=== PATIENT | male | born 1970 | race Caucasian/White ===

== ENCOUNTER 2016-12-01 23:41 | Observation (INO) ==
[2016-12-02] MEDS ORDERED: 0.9 % Sodium Chloride 500 ML IVC ONE (00:33)
[2016-12-02] MEDS ORDERED: Aspirin 81 MG TAB.CHEW PO ONE (00:33)
--- NOTE | 2016-12-02 00:43 | Emergency Department Note ---
Disposition Clinical Impression: Chest pain, Elevated blood pressure reading with diagnosis of hypertension Disposition: Admitted As Inpatient Condition: Good Referrals: Rosy Cornell MD [Primary Care Provider] - Forms: ED Satisfaction Letter Time of Disposition: 01:41 Chest Pain HPI - General Chief Complaint: ED Chest Pain Stated Complaint: gris, high bp, chest pain shoulder pain Time Seen by Provider: 12/02/16 00:02 Source: patient Mode of arrival: private vehicle Limitations: no limitations Vital Signs Reviewed: Yes Nursing Notes Reviewed: Yes - History of Present Illness HPI Narrative: 46-year-old male presents to the emergency department with complaint of shortness of breath, elevated blood pressure and left-sided chest discomfort. Patient states that this has been present but intermittent for the last 2-3 days. He states that he was recently started on a new blood pressure medication , Cardizem. Patient states that he previously took atenolol but was switched approximately one week ago by his family doctor. Patient does note some mild discomfort with deep inspiration, has been complaining of pain with coughing. He denies that his cough is productive. He denies any recent fever, chills, nausea, vomiting or abdominal pain. Additionally, patient notes that he feels as if he has had intermittent palpitations "sometimes it just feels like I have an extra couple beats or skipped a beat." He denies any dizziness or lightheadedness. He denies any syncopal episodes. Pt complaint: chest pain Onset (ago): day(s) (2-3) Duration: intermittent Onset: during rest Pain Location: left chest Severity: moderate Severity scale (1-10): 5 Quality: sharp Pain Radiation: none Improves with: nothing Worsens with: inspiration (Coughing) Associated symptoms: Reports: dyspnea, palpitations. Denies: nausea, vomiting, diaphoresis, sense of impending doom, syncope, fever, cough Treatments prior to arrival chest pain: none - Related Data Allergies Allergy/AdvReac Type Severity Reaction Status Date / Time Sulfa (Sulfonamide Allergy Hives Verified 12/01/16 23:49 Antibiotics) All systems ED: reviewed and negative except as stated. Constitutional: Denies: fever, chills Cardiovascular: Reports: chest pain, palpitations Respiratory: Reports: cough, dyspnea Gastrointestinal: Denies: abdominal pain, nausea, vomiting Musculoskeletal: Denies: back pain, neck pain, joint swelling Integumentary: Denies: rash, abrasion, lesions Neurological: Denies: headache Chest Pain PMH - Past Medical History Medical history: Reports: no medical history Psychiatric history: Reports: no psych history - Social History Smoking Status: Never smoker Alcohol use: Reports: rarely Drug use: Reports: none Physical Exam - General Limitations: no limitations General appearance: alert, in no apparent distress - Head Head exam: atraumatic, normocephalic, normal inspection - Eye Eye exam: Present: normal appearance, PERRL - Neck Neck exam: Present: normal inspection, full ROM, trachea midline - Chest Chest inspection: Present: normal inspection, symmetric chest wall rise - Respiratory Respiratory exam: Present: normal lung sounds bilaterally. Absent: respiratory distress, wheezes, stridor, accessory muscle use - Cardiovascular Cardiovascular exam: Present: regular rate, normal rhythm, normal heart sounds - Abdominal Exam Abdominal exam: Present: soft, Non-Tender, normal bowel sounds. Absent: distention, guarding, rebound, rigidity - Extremities Exam Extremities exam: Present: normal inspection, full ROM, normal capillary refill. Absent: pedal edema, joint swelling, calf tenderness - Expanded Lower Extremity Exam Gait: observed and normal - Back Exam Back exam: Present: normal inspection, full ROM. Absent: tenderness - Neurological Exam Neurological exam: Present: alert, oriented X3 - Psychiatric Psychiatric exam: Present: normal affect, normal mood - Skin Skin exam: Present: warm, dry, intact, normal color Course Vital Signs Temperature 97.6 F 12/01/16 23:49 Pulse Rate 109 12/01/16 23:49 Respiratory Rate 20 12/01/16 23:49 Blood Pressure 173/93 12/01/16 23:49 O2 Sat by Pulse Oximetry 97 12/01/16 23:49 Temperature 97.6 F 12/01/16 23:49 Pulse Rate 89 12/02/16 03:00 Respiratory Rate 20 12/02/16 03:00 Blood Pressure 147/95 12/02/16 03:00 O2 Sat by Pulse Oximetry 97 12/02/16 03:00 Oxygen Delivery Oxygen Delivery Room Air Chest Pain - Lab Data Lab results reviewed: Yes I reviewed the patient's lab results. Result diagrams: 12/02/16 00:40 12/02/16 00:40 Lab Results 12/02/16 12/02/16 12/02/16 Range/Units 00:40 00:40 00:40 WBC 5.7 (4.3-11.1) K/mcL RBC 4.52 (4.19-5.50) M/mcL Hgb 15.2 (12.9-16.9) g/dL Hct 43.1 (37.5-50.1) % MCV 95.4 (83.0-100.0) fL MCH 33.6 H (28.0-33.3) pg MCHC 35.3 (31.6-35.5) g/dL RDW 11.9 (11.5-14.5) % Plt Count 197 (140-400) K/mcL MPV 11.0 (9.4-12.4) fL Immature Gran % 0.5 (0-4) % Seg Neutrophils % 50.2 % Lymphocytes % 35.3 % Monocytes % 10.7 % Eosinophils % 2.3 % Basophils % 1.0 % Neutrophils # 2.9 (1.6-8.9) K/mcL Lymphocytes # 2.0 (0.6-4.6) K/mcL Monocytes # 0.6 (0.0-1.3) K/mcL Eosinophils # 0.1 (0.0-0.6) K/mcL Basophils # 0.1 (0.0-0.2) K/mcL Immature Plt Fraction 8.1 H (1.1-6.1) % PT 10.6 (9.4-12.1) Seconds INR 1.0 APTT 36.5 H (26.0-36.0) Seconds D-Dimer < 215 (0-500) ng/mLFEU Sodium (136-145) mEq/L Potassium (3.5-4.5) mEq/L Chloride (98-109) mEq/L Carbon Dioxide (19-29) mEq/L BUN (8-26) mg/dL Creatinine (0.72-1.25) mg/dL Est GFR ( Amer) (> 60) Est GFR (Non-Af Amer) (> 60) BUN/Creatinine Ratio (6-26) Glucose (70-99) mg/dL Calculated Osmolality (280-300) Calcium (8.6-10.8) mg/dL Troponin I (0-0.03) ng/mL B-Natriuretic Peptide < 10 (0-100) pg/mL 12/02/16 12/02/16 Range/Units 00:40 00:40 WBC (4.3-11.1) K/mcL RBC (4.19-5.50) M/mcL Hgb (12.9-16.9) g/dL Hct (37.5-50.1) % MCV (83.0-100.0) fL MCH (28.0-33.3) pg MCHC (31.6-35.5) g/dL RDW (11.5-14.5) % Plt Count (140-400) K/mcL MPV (9.4-12.4) fL Immature Gran % (0-4) % Seg Neutrophils % % Lymphocytes % % Monocytes % % Eosinophils % % Basophils % % Neutrophils # (1.6-8.9) K/mcL Lymphocytes # (0.6-4.6) K/mcL Monocytes # (0.0-1.3) K/mcL Eosinophils # (0.0-0.6) K/mcL Basophils # (0.0-0.2) K/mcL Immature Plt Fraction (1.1-6.1) % PT (9.4-12.1) Seconds INR APTT (26.0-36.0) Seconds D-Dimer (0-500) ng/mLFEU Sodium 140 (136-145) mEq/L Potassium 3.4 L (3.5-4.5) mEq/L Chloride 105 (98-109) mEq/L Carbon Dioxide 21 (19-29) mEq/L BUN 12 (8-26) mg/dL Creatinine 1.20 (0.72-1.25) mg/dL Est GFR ( Amer) > 60 (> 60) Est GFR (Non-Af Amer) > 60 (> 60) BUN/Creatinine Ratio 10 (6-26) Glucose 142 H (70-99) mg/dL Calculated Osmolality 292 (280-300) Calcium 9.6 (8.6-10.8) mg/dL Troponin I 0.00 (0-0.03) ng/mL B-Natriuretic Peptide (0-100) pg/mL - Radiology Data Radiology results reviewed: Yes I reviewed the patient's radiology results. - EKG Data EKG attestation: Yes I reviewed and interpreted this EKG. EKG results narrative: Sinus tachycardia with a rate of 112 bpm with occasional supraventricular premature complexes. No ST elevation. EKG shows normal: sinus rhythm Rate: tachycardia Rhythm: PVC's [place]/QRS: normal When compared to previous EKG there are: no significant changes Interpretation: no acute changes Heart Score - Score History: Slightly Suspicious EKG: Normal Age: 45-65 Risk Factors: 1-2 risk factors Troponin: Less than normal limit HEART Score Total: 2 Attestation Statement - Attestation Attestation: I personally interviewed and examined this patient and my medical decision- making was reviewed with the ED NATHALIA, Barrett Chen I agree with the documented findings, disposition and treatment plan as described except to the extent set forth below. She is a 46 yo white male with a history of uncontrolled hypertension, positive family history for cardiac disease is been having exertional left-sided chest pain radiating into his shoulder and arm associated with shortness of breath. Patient initially was having these symptoms with exertion only and now is starting to notice symptoms at rest. Patient came in with significantly elevated blood pressure and states he has been compliant he sees his doctor on a regular basis, he recently had his blood pressure medicines switched from atenolol to Cardizem and still is having poor control. Patient's EKG on arrival showed no acute findings. I agree with physical exam findings as documented. Patient was given aspirin and nitroglycerin with subsequent pain relief. Patient's chest x-ray is unremarkable and labs including troponin are negative. Patient is resting comfortably and pain-free at this time with improvement in his blood pressure following nitroglycerin. Spoke with patient at length about risk factors and my concern for his heart as the cause of his symptoms. Patient is agreeable with admission for definitive cardiac testing. He has had no prior testing in the past. Discussed with Dr. Treviño who accepted the patient for admission and further evaluation.
[2016-12-02 00:48] LABS: Basophils # 0.1 K/mcL (0.0-0.2); Eosinophils # 0.1 K/mcL (0.0-0.6); Eosinophils % 2.3 %; Hematocrit 43.1 % (37.5-50.1); Hemoglobin 15.2 g/dL (12.9-16.9); Immature Granulocytes % 0.5 % (0-4); Immature Platelets 8.1 % (1.1-6.1); Lymphocytes % 35.3 %; Mean Corpuscular HGB Conc 35.3 g/dL (31.6-35.5); Mean Corpuscular Hemoglobin 33.6 pg (28.0-33.3); Mean Corpuscular Volume 95.4 fL (83.0-100.0); Monocytes # 0.6 K/mcL (0.0-1.3); Monocytes % 10.7 %; Neutrophils # 2.9 K/mcL (1.6-8.9); Platelet Count 197 K/mcL (140-400); Red Blood Count 4.52 M/mcL (4.19-5.50); Red Cell Distribution Width 11.9 % (11.5-14.5); Segmented Neutrophils % 50.2 %
[2016-12-02] MEDS: Nitroglycerin 0.4 MG TAB.SUBL SL ONE ×3 (00:49→01:05)
[2016-12-02 00:52] LABS: Prothrombin Time 10.6 Seconds (9.4-12.1)
[2016-12-02 00:55] LABS: Activated Partial Thrombo Time 36.5 Seconds (26.0-36.0)
[2016-12-02 01:01] LABS: BUN/Creatinine Ratio 10 (6-26); Blood Urea Nitrogen 12 mg/dL (8-26); Calcium 9.6 mg/dL (8.6-10.8); Carbon Dioxide 21 mEq/L (19-29); Chloride 105 mEq/L (98-109); Glucose 142 mg/dL (70-99); Osmolality,Calculated 292 (280-300); Potassium 3.4 mEq/L (3.5-4.5); Sodium 140 mEq/L (136-145); eGFR For African Americans > 60 (> 60); eGFR For Non-African Americans > 60 (> 60)
[2016-12-02 01:16] LABS: D-Dimer < 215 ng/mLFEU (0-500)
[2016-12-02] MEDS ORDERED: Ondansetron 4 MG/2 ML VIAL IVP PRN (04:09)
[2016-12-02] MEDS ORDERED: Acetaminophen 325 MG TABLET PO PRN (04:09)
[2016-12-02] MEDS ORDERED: Naloxone 0.4 MG/ML INJ IVP PRN (04:09)
--- NOTE | 2016-12-02 04:13 | Internal Med History&Physical ---
Date of Encounter: 12/02/16 Time of Encounter: 04:00 Assessment and Plan (1) Chest pain Current visit: Yes Status: Acute Patient is chest pain going on for the past 4 days associated with nausea, sweating, palpitations. History of hypertension. Reproducible chest wall tenderness on exam. EKG with T-wave inversions in lead 3 which is unchanged from his prior EKG. Cardiac enzymes have been negative 1. Patient was placed under observation on telemetry. Echocardiogram. Cycle cardiac enzymes. If negative, will obtain pharmacological nuclear stress test given his baseline EKG abnormalities and the fact that the patient is currently on calcium channel blockers. Aspirin. Nitroglycerin when necessary. Qualifiers: Chest pain type: precordial pain Qualified Code(s): R07.2 - Precordial pain (2) HTN (hypertension) Current visit: Yes Status: Chronic Elevated blood pressure. Patient was recently changed from atenolol to Cardizem. Patient will be started on lisinopril. Qualifiers: Hypertension type: essential hypertension Qualified Code(s): I10 - Essential (primary) hypertension (3) Back pain Current visit: Yes Status: Chronic Uses Vicodin at home. Continue as needed. Qualifiers: Back pain location: low back pain Chronicity: chronic Back pain laterality: midline Sciatica presence: without sciatica Qualified Code(s): M54.5 - Low back pain; G89.29 - Other chronic pain (4) AMINAH (obstructive sleep apnea) Current visit: No Status: Suspected High suspicion for obstructive sleep apnea given his history of snoring and witnessed apneas, tiredness despite sleeping up to 15 hours a day. Patient will require outpatient sleep study for diagnosis and grading the severity of sleep apnea (5) Obesity (BMI 30.0-34.9) Current visit: No Status: Chronic Internal Medicine - H&P: HPI Chief complaint: Chest pain Admitted From: Emergency Dept Plans for Post Hospital Care: Home History of present illness: Mr. Hatfield is a 46 year old male with a history of hypertension who presented to the emergency department due to chest pain. Patient states that his pain started about 4 days ago while he was at work when he was doing his regular activities and not exerting himself. At that time, the pain was about 6/10 intensity on the left side of his chest without any radiation and it was dull and throbbing in nature. No aggravating or relieving factors. It did resolve with nitroglycerin that he received in the emergency department. It is associated with palpitations, lightheadedness, nausea and sweating. He denies any cough, wheezing, fever or chills. He denies any abdominal pain, vomiting, diarrhea or constipation. He denies any recent weight changes, swelling in his legs. Denies any recent travel, sick contacts. He does report feeling tired over the past 2 weeks despite sleeping up to 15 hours. He does have a history of snoring and witnessed apneas. However, he has never had a sleep study and does not carry a diagnosis of sleep apnea. Past Med Surg Social Fam HX - Past Medical History Attestation: Yes The following information was validated with the patient. Source: patient Medical history: hypertension, other (Chronic low back pain) Psychiatric history: no psych history - Past Surgical History Surgical History: no surgical history - Social History Smoking Status: Never smoker Smokeless Tobacco Status: No Alcohol use: heavy Drug use: none Occupational status: employed Current living situation: Home, With Family Activity Level: Independent ambulation Recent Out of Country Travel Within the Last 8 Weeks: No Exposure or Possible Exposure to Illness During Travel: No - Family History Father Hx Family Cardiac Disorders: Yes (CHF) Internal Medicine - H&P: Meds Allergies Sulfa (Sulfonamide Antibiotics) Allergy (Verified 12/02/16 04:14) Hives All Systems PM: A 10-system review of systems was performed and is negative for pertinent findings except as documented above in the HPI. Review of systems: 10 systems have been reviewed and are negative except as mentioned in the history of present illness - Constitutional Vitals: Temp Pulse Resp BP Pulse Ox 97.6 F 85 20 149/77 97 12/01/16 23:49 12/02/16 03:30 12/02/16 03:30 12/02/16 03:30 12/02/16 03:30 Exam: Gen.: Sitting in bed. Mild distress. Eyes: Pupils equal, round and reactive to light. Extraocular muscles intact. ENT: Moist mucous membranes. No oropharyngeal erythema or discharge. Chest: Clear to auscultation bilaterally. No adventitious sounds present. Reproducible chest wall tenderness in the midline. CVS: First and second heart sounds present. No murmurs, rubs or gallops. Mild tachycardia present. Abdomen: Soft, nontender, obese. Bowel sounds present. No hepatosplenomegaly. Skin: No decubitus ulcers appreciated. 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 Psychiatric: Alert, awake and oriented to time, place and person. Lymphatic system: No lymphadenopathy appreciated Internal Med - H&P Results - Labs CBC & Chem 7: 12/02/16 00:40 12/02/16 00:40 - EKG Data -: EKG Interpreted by Myself EKG shows normal: sinus rhythm, ST-T waves (T-wave inversions in lead III) Rate: normal - EKG Data Prior EKG available for review: yes When compared to previous EKG: there is no significant change - Diagnostic Studies Chest x-ray Status: image reviewed by me (No acute infiltrates or abnormality detected)
[2016-12-02] MEDS ORDERED: *HR* HYDROcodone/Acet 10/325 mg TABLET PO PRN (05:14)
[2016-12-02] MEDS ORDERED: *HR* Heparin 5,000 UNIT/ML VIAL SQ SCH (06:00)
[2016-12-02] MEDS ORDERED: Regadenoson 0.4 MG/5 ML SYRINGE IVP ONE (06:05)
[2016-12-02] MEDS ORDERED: Diltiazem CD (24hr) 120 MG CAPSULE PO SCH (09:00)
--- NOTE | 2016-12-02 10:28 | Nuclear Medicine Stress Report ---
Regadenoson Nuclear Stress Name: Armani Hatfield Date of Study: 12/02/2016 Date: 1970 Ht: 70.0 in Medical Record#: [id number] Age: 46 Wt: 229.0 lb Gender: Male Order #: [id number] Location: [facility] Room: [facility] Supervising Provider: Phil Mcdonald CNP Reading Physician: Marlon Larsen MD, [facility] Ordering Physician: Dora Cotto CNP Primary Care Physician: Rosy Cornell MD Stress Technologist: Juan Johnson CRT Online Trader: Jazmín Amaya Indications: Chest Pain Impression: No significant ECG changes with regadenoson. Gated LVEF = 65%. Perfusion imaging was negative for ischemia or infarct. Stress Test Summary: Stress Test Type: Pharmacologic Baseline Information: Initial Heart Rate: 72 Blood Pressure: 138/94 Stress Information: Maximum Blood Pressure: 142/90 Maximum Heart Rate: 93 Percent Maximum Heart Rate Achieved: 53 Double Product: [id number] Nuclear Summary: SPECT myocardial perfusion imaging using [id number] Sestamibi given intravenously was performed at rest and following cardiac stress testing. The resting images were obtained following initial dose of 11.7 mCi. Following stress an additional dose of 35.4 mCi was given at peak exercise or 30 seconds post regadenoson infusion. Findings: Stress Note * Resting ECG demonstrated normal sinus rhythm. * No baseline arrhythmias were noted. * No arrhythmias were noted during stress. * No significant ECG changes with regadenoson. Hemodynamic responses * Normal hemodynamic responses to pharmacologic stress. Study Quality * Study quality is good. Gated EF % * Gated LVEF = 65%. Left Ventricle * The left ventricle is not dilated. * Normal Segmental Perfusion in rest. * Normal segmental perfusion in stress. TID * No evidence of transient ischemic dilatation. Updated by Marlon Larsen MD, [facility] on 12/02/2016 10:21:56 AM electronically signed on 12/02/2016 10:22:17 AM with status of Final
[2016-12-02 11:17] VITALS: BP 141/87
--- NOTE | 2016-12-02 12:49 | Discharge Summary ---
Date of Encounter: 12/02/16 Time of Encounter: 12:00 - Discharge Diagnosis (1) Chest pain Priority: Primary Status: Resolved Comments: Patient denied chest pain on day of discharge. Chest x-ray negative. Troponins negative. Echocardiogram unremarkable with ejection fraction of 60%. Stress test negative. ACS ruled out. (2) Elevated blood pressure reading with diagnosis of hypertension Priority: Secondary Status: Chronic Comments: Patient stating he was started on Cardizem last for his hypertension. He denied any palpitations prior to the initiation of this medication he states that this chest pain and palpitations started after starting his Cardizem, will be held at discharge and lisinopril will be initiated. Follow-up closely outpatient. (3) HTN (hypertension) Priority: Secondary Status: Chronic Qualifiers: Hypertension type: essential hypertension Qualified Code(s): I10 - Essential (primary) hypertension (4) Obesity (BMI 30.0-34.9) Priority: Secondary Status: Chronic (5) Back pain Priority: Secondary Status: Chronic Qualifiers: Back pain location: low back pain Chronicity: chronic Back pain laterality: midline Sciatica presence: without sciatica Qualified Code(s): M54.5 - Low back pain; G89.29 - Other chronic pain (6) AMINAH (obstructive sleep apnea) Priority: Primary Status: Suspected Comments: Outpatient sleep study (7) Accelerated hypertension Priority: Primary Status: Resolved - Discharge Medications Prescriptions: Lisinopril [Zestril] 20 mg PO DAILY #30 tablet Home Medications: Adalimumab [Humira] 40 mg SQ Q2W 12/02/16 [History] Allopurinol [Zyloprim 300 MG] 300 mg PO DAILY 12/02/16 [History] Atenolol [Tenormin] 50 mg PO BID 12/02/16 [History] HYDROcodone/Acet 10/325 mg [[place] 10-325 mg] 2 tab PO Q4HR PRN 12/02/16 [History ] Lisinopril [Zestril] 20 mg PO DAILY #30 tablet 12/02/16 [Rx] Montelukast [Singulair] 10 mg PO DAILY 12/02/16 [History] Omeprazole [PriLOSEC] 40 mg PO DAILY 12/02/16 [History] Allergies/Adverse Reactions: Allergies Sulfa (Sulfonamide Antibiotics) Allergy (Verified 12/02/16 04:14) Hives Procedures/tests Complete & Pending: Procedures Performed prior 72 hours Category Date Time Status NM renata perf SPECT multi [NM] Routine Exams 12/02/16 04:10 Taken EV echocardiogram Routine Y 12/02/16 04:10 Completed SP pharm nuclear stress Routine Y 12/02/16 04:19 Completed Date of admission: 12/02/16 03:43 Primary care physician: Rosy Cornell MD Discharging clinician: Dora Cotto Anticipated date of discharge: 12/02/16 - Patient Status Disposition: Home, Self-Care Condition: Good Functional capacity at discharge: independent ambulation Overall status at discharge: patient is back to baseline - Discharge Instructions Follow Up With: Rosy Cornell MD [Primary Care Provider] - Additional Instructions: Follow-up with primary care provider within one to 2 weeks - Diet and Activity Activity: increase activity as tolerated Diet: low fat, low cholesterol, low salt diet Hospital course: Mr. Hatfield is a 46 year old male with past medical history of hypertension, chronic back pain, heavy alcohol abuse. Patient presented to the emergency department chief complaint of chest pain. Patient stating 4 days prior to presentation while he was at work doing his regular activities, he began to experience left-sided chest pain without radiation that was dull and throbbing in nature. He denied any aggravating or relieving factors. It resolved with nitroglycerin in the emergency department. Associated symptoms include palpitations, lightheadedness, nausea and sweating. Patient denied cough, fever , chills. Patient also reported feeling tired over the 2 weeks prior to presentation despite sleeping up to 15 hours. Patient with history of snoring and witnessed apnea-recommend outpatient sleep study. Workup in the emergency department notable for accelerated hypertension. Patient was started on lisinopril and admitted to the hospitalist service for further evaluation and management. Troponins were negative. Chest x-ray negative. Echocardiogram unremarkable with ejection fraction of 60%. Patient had a nuclear stress test that was negative for ischemia or infarct. Acute coronary syndrome ruled out. Patient stating on last he was started on Cardizem by his primary care provider for blood pressure. He denied any palpitations prior to being started on Cardizem. He stated that his symptoms started approximately 2 days later. While rare, Cardizem can cause palpitations. He was taken off his Cardizem and the lisinopril was continued and his blood pressure was improved at time of discharge. He is also on a beta krunal. He denied chest pain or shortness of breath throughout this admission. He was discharged home in stable condition with close outpatient follow-up recommended. He was also instructed to check his blood pressure and heart rate daily and keep a log for his primary care provider. ITS Impressions Chest X-Ray 12/02/16 00:33 IMPRESSION: No evidence of acute cardiopulmonary disease. D/ / Marquez Kee MD / Marquez Kee MD Interpreting Provider: Marquez Kee MD Echocardiogram impressions: Normal LV systolic function, LVEF 60%. Normal right ventricular size and function. No significant valvular dysfunction. Regadenosen nuclear stress impression: No significant ECG changes with Regadenosen. Gated LVEF equals 65%. Perfusion imaging was negative for ischemia or infarct. - Time Spent with Patient Total time spent providing and/or coordinating discharge services: - Constitutional Vitals: Temp Pulse Resp BP Pulse Ox 97.4 F L 60 16 141/87 97 12/02/16 11:16 12/02/16 11:16 12/02/16 11:16 12/02/16 11:16 12/02/16 11:16 General appearance: Present: A&O X 3, pleasant, no acute distress, answers questions appropriately - Head Head exam: Present: atraumatic, normocephalic - Eye Eye exam: Present: PERRL, conjuntiva pink, sclera anicteric Pupils: Present: PERRL - Neck Neck exam general surgery: Present: supple, trachea midline. Absent: lymphadenopathy - Respiratory Respiratory exam: Present: CTAB. Absent: accessory muscle use, rales, respiratory distress, rhonchi, wheezes - Cardiovascular Cardiovascular exam: Present: RRR, +S1, +S2. Absent: diastolic murmur, gallop, rubs, systolic murmur - GI/Abdominal GI/Abdominal exam: Present: normal bowel sounds, soft, no peritoneal signs. Absent: distended, tenderness - Extremities Exam Extremities exam: Present: warm, radial pulses palpable and symetrical. Absent : calf tenderness, cyanotic, pedal edema - Neurological Exam Neurological exam: Present: alert, CN II-XII intact, normal gait, oriented X3, no focal deficits, strengths equal and symetr throughout. Absent: pronater drift, facial droop, speech deficit - Skin Skin exam: Present: dry, intact, normal color, warm
--- NOTE | 2016-12-02 15:53 | Electrocardiograph Report ---
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
== END 2016-12-02 13:35 | disposition home or self-care (01) ==
LOC: EMEROO 23:41 → 3BNU 23:41
PROVIDERS: ADMIT Internal Medicine Sleep Medicine; ATTEND Nurse Practitioner Family